=== PATIENT | female | born 1980 | race American Indian/Alaskan Native ===

== ENCOUNTER 2021-12-03 12:14 | Emergency (ER) | payer SELFPAY ==
--- NOTE | 2021-12-03 13:47 | Emergency Department Report ---
ED Rash HPI - HPI Chief Complaint: Skin/Abscess/Foreign Body Stated Complaint: LICE Time Seen by Provider: 12/03/21 12:51 Duration: 3 Days Location: Other Suspected Cause: Insect Rash Symptoms: Yes Itching, No Facial Swelling, No Tongue/Oral Swelling, No Breathing Difficulties, No Choking Sensation, No Wheezing/Dyspnea, No Peeling, No Blistering, No Fever, No Lightheaded, No Malaise, No Myalgias Severity: mild Other History: 41-year-old comes to the ER with her entire family due to a lice infestation ED Review of Systems ROS: Stated complaint: LICE Other details as noted in HPI Comment: All other systems reviewed and negative ED Past Medical Hx - Past Medical History Previous Medical History?: Yes Hx Hypertension: Yes (with ) Additional medical history: obesity - Surgical History Past Surgical History?: Yes Additional Surgical History: x 2. tubal ligation - Family History Family history: no significant - Social History Smoking Status: Never Smoker Substance Use Type: None - Medications Home Medications: Home Medications Medication Instructions Recorded Confirmed Last Taken Type Permethrin 5% [Acticin 5% CREAM] 1 applicatio TP ONCE #1 tube 12/03/21 Unknown Rx Rash Exam - Exam General: Vital signs noted. No distress. Alert and acting appropriately. HEENT: No Periorbital Edema, No Conjuctival Injection, No Chemosis, No Perioral Edema, No Tongue Edema, No Uvular Edema, No Compromised Airway, No Drooling Lungs: Yes Good Air Exchange (Normal Breath Sounds), No Wheezes, No Ronchi, No Stridor, No Cough, No Labored Respirations, No Retractions, No Use of Accessory Muscles, No Other Abnormal Lung Sounds Heart: Yes Regular, No Murmur Other: Positive: Abdomen Normal, Neurologic Normal, Musculoskeletal Normal ED Medical Decision Making - Medical Decision Making RN asked to take vital signs. Patient being seen with entire family for lice infestation. Mother verbalizes understanding of discharge plan of care - Differential Diagnosis Lice Critical care attestation.: If time is entered above; I have spent that time in minutes in the direct care of this critically ill patient, excluding procedure time. ED Disposition Clinical Impression: Lice infestation Disposition: HOME / SELF CARE / HOMELESS Is pt being admited?: No Does the pt Need Aspirin: No Condition: Stable Instructions: Head Lice, Pediatric, Lice, Adult, Permethrin lotion Additional Instructions: SEE ATTACHED PAPERS FOR INSTRUCTIONS MED ORDERED TODAY- ALL FAMILY SHOULD BE TREATED AT ONCE AND CLEAN THE HOME/CLOTHES/BEDDING-- ANYTHING THAT YOU HAVE COME INTO CONTACT WITH OVER THE COUNTER [employer] CAN HELP WITH THE ITCHING FOLLOW UP WITH PCP IF SYMPTOMS PERSIST KIDS SHOULD BE SEEN [facility] AND REFERRAL FOR ADULTS BELOW LOOK ONLINE AT CDC GUIDELINES FOR CLEANING LICE Prescriptions: Permethrin 5% [Acticin 5% CREAM] 1 applicatio TP ONCE #1 tube Referrals: PRIMARY CARE, [Primary Care Provider] - 3-5 Days CONSUELO KIMBROUGH MD [Staff Physician] - 3-5 Days Forms: Work/School Release Form(ED) Time of Disposition: 13:45
== END 2021-12-03 17:34 | disposition home or self-care (01) ==
LOC: ED 12:14
DX: B85.2 Pediculosis, unspecified (principal); Z98.51 Tubal ligation status; Z79.899 Other long term (current) drug therapy
CPT/HCPCS: 99282